=== PATIENT | female | born 1955 | race Caucasian/White ===

== ENCOUNTER 2017-01-12 08:00 | Observation (INO) | payer BC ==
[2017-01-12] MEDS ORDERED: LIDOCAINE 1% 2 ML INJ ONE (08:34)
[2017-01-12] MEDS ORDERED: LIDOCAINE 1% 2 ML INJ ID PRN (08:36)
[2017-01-12] MEDS ORDERED: LR 1,000 ML IV ONE (08:36)
[2017-01-12] MEDS ORDERED: BUPIVACAINE 0.5% 30 ML SDV ONE (09:01)
[2017-01-12] MEDS ORDERED: SCOPOLAMINE HYDROBROMIDE 1 MG/3 DAYS PATCH TD ONE (09:14)
[2017-01-12] MEDS ORDERED: MIDAZOLAM 2 MG/2 ML VIAL ONE (09:14)
[2017-01-12] MEDS ORDERED: cefOXitin SODIUM 2 GM in D5W 100 ML IV ONE (09:18)
--- NOTE | 2017-01-12 09:18 | PDHPUP ---
History & Physical Update H&P update statement: This history and physical update is based on an assessment of the patient which was completed after admission or registration (within 24 hours), but prior to the surgery/procedure. H&P update: H&P reviewed & patient examined, no change in patient's condition since H&P completed
[2017-01-12] MEDS ORDERED: fentaNYL 100 MCG/2 ML INJ ONE (09:24)
[2017-01-12] MEDS ORDERED: PROPOFOL/EMULSION 500 MG/50 ML BOTTLE IV ONE ×2 (09:24→09:31)
[2017-01-12] MEDS ORDERED: DEXMEDETOMIDINE/NS 4MCG/ML 50 ML BTL IV ONE (10:09)
[2017-01-12] MEDS ORDERED: RANITIDINE 50 MG/2 ML VIAL ONE (10:19)
[2017-01-12] MEDS ORDERED: LIDOCAINE 2% 5 ML SDV ONE (10:19)
[2017-01-12] MEDS ORDERED: epHEDrine SULFATE 10 MG/ML SYR ONE (10:19)
[2017-01-12] MEDS ORDERED: ONDANSETRON 4 MG/2 ML VIAL ONE (10:19)
[2017-01-12] MEDS ORDERED: SUGAMMADEX SODIUM 200 MG/2 ML VIAL IVP ONE (10:19)
[2017-01-12] MEDS ORDERED: ROCURONIUM 100 MG/10 ML VIAL ONE (10:19)
[2017-01-12] MEDS ORDERED: METOCLOPRAMIDE 10 MG/2 ML VIAL ONE (10:19)
[2017-01-12] MEDS ORDERED: DEXAMETHASONE 4 MG/ML VIAL ONE (10:19)
[2017-01-12] MEDS ORDERED: KETOROLAC 30 MG/1 ML SDV ONE (10:19)
--- NOTE | 2017-01-12 10:23 | PDANEPAE ---
ANE Past Medical History - Cardiovascular History Hx Hypertension: No Hx Arrhythmias: No Hx Chest Pain: No Hx Coronary Artery / Peripheral Vascular Disease: No Hx CHF / Valvular Disease: No Hx Palpitations: No - Pulmonary History Hx COPD: No Hx Asthma/Reactive Airway Disease: No Hx Recent Upper Respiratory Infection: No Hx Oxygen in Use at Home: No Hx Sleep Apnea: No Sleep Apnea Screening Result - Last Documented: Negative - Neurologic History Hx Cerebrovascular Accident: No Hx Seizures: No Hx Dementia: No - Endocrine History Hx Diabetes: No - Renal History Hx Renal Disorders: No - Liver History Hx Hepatic Disorders: No - Neurological & Psychiatric Hx Hx Neurological and Psychiatric Disorders: No - Cancer History Hx Cancer: No - Congenital Disorder History Hx Congenital Disorders: No - GI History Hx Gastrointestinal Disorders: Yes Gastrointestinal History Comment: Barretts esophagus - Other Health History Other Health History: loose tooth lower R - Chronic Pain History Chronic Pain: No - Surgical History Prior Surgeries: tubal ligation ANE Review of Systems Review of Systems: - Exercise capacity METS (RN): 5 METS ANE Patient History - Allergies Allergies/Adverse Reactions: No Known Allergies Allergy (Unverified 10/12/14 13:26) - Home Medications Home Medications: Ferrous Sulfate [Ferrous Sulf 325 MG (*)] 325 mg PO DAILY 12/24/16 [Last Taken Unknown] Lansoprazole [Prevacid] 30 mg PO DAILY 12/24/16 [Last Taken Unknown] Multivitamins [Multivitamin (*)] 1 each PO DAILY 12/24/16 [Last Taken Unknown] - NPO status NPO Since - Liquids (Date): 01/11/17 NPO Since - Liquids (Time): 22:00 NPO Since - Solids (Date): 01/11/17 - Smoking Hx Smoking Status: Never smoked - Family Anes Hx Family Hx Anesthesia Complications: none ANE Labs/Vital Signs - Vital Signs Blood Pressure: 124/85 Heart Rate: 67 Respiratory Rate: 15 O2 Sat (%): 96 Height: 162.56 cm Weight: 68.039 kg ANE Physical Exam - Airway Neck exam: FROM Mallampati Score: Class 1 Mouth exam: normal dental/mouth exam Mouth image: 1 - loose crown, missing 1 and 2 - Pulmonary Pulmonary: no respiratory distress, no rales or rhonchi, clear to auscultation - Cardiovascular Cardiovascular: regular rate and rhythym, no murmur, rub, or gallop - ASA Status ASA Status: II (loose crown, right upper teeth, last one, 6th from midline) ANE Anesthesia Plan Anesthesia Plan: general endotracheal anesthesia Total IV Anesthesia: Yes
[2017-01-12] MEDS ORDERED: MEPERIDINE 25 MG/ML SYR IVP PRN (11:09)
[2017-01-12] MEDS ORDERED: LR 500 ML IV PRN (11:09)
[2017-01-12] MEDS ORDERED: METOCLOPRAMIDE 10 MG/2 ML VIAL IVP PRN (11:09)
[2017-01-12] MEDS ORDERED: DEXAMETHASONE 4 MG/ML VIAL IVP PRN (11:09)
[2017-01-12] MEDS ORDERED: NALOXONE HCL 0.4 MG/ML INJ IVP PRN (11:09)
[2017-01-12] MEDS ORDERED: ALBUTEROL 3 ML DEYVIAL IH PRN (11:09)
[2017-01-12] MEDS ORDERED: fentaNYL 100 MCG/2 ML INJ IVP PRN (11:09)
[2017-01-12] MEDS ORDERED: ONDANSETRON 4 MG/2 ML VIAL IVP PRN ×2 (11:09→11:46)
[2017-01-12] MEDS ORDERED: PROMETHAZINE HCL 25 MG/ML INJ IVP PRN (11:09)
--- NOTE | 2017-01-12 11:45 | POSTOPPROG ---
Post Op Note Date of Operation: 01/12/17 Surgeon: Gera Rodriguez Certified Maintenance Welder: Dr. Flynn Anesthesiologist: Dr. Garcia Anesthesia: GET(General Endotracheal) Pre-op Diagnosis: PEH Post-op Diagnosis: PEH Procedure: Robotic PEHR, fundoplication Inf/Abcess present in the surg proc area at time of surgery?: No EBL: Minimal
[2017-01-12] MEDS: HYDROmorphone HCL/NS/PF 0.4 MG/2 ML SYR IVP PRN ×2 (12:51→23:29)
[2017-01-12] MEDS: LR 1,000 ML IV SCH ×2 (13:10→23:29)
[2017-01-12] MEDS: OXYCODONE/APAP 5/325 TAB PO PRN (17:12)
[2017-01-13] MEDS: OXYCODONE/APAP 5/325 TAB PO PRN ×2 (05:51→11:40)
[2017-01-13 05:55] LABS: HEMOGLOBIN 12.7 g/dL (12.6-16.3); MEAN CELL HEMOGLOBIN CONCENTR. 31.8 g/dL (32.4-36.7); MEAN CELL VOLUME 78.7 fL (81.5-99.8); RED BLOOD CELL COUNT 5.08 10^6/uL (4.18-5.33); RED CELL DISTRIBUTION WIDTH 15.3 % (11.5-15.2)
[2017-01-13 06:10] LABS: ALANINE AMINOTRANSFERASE 51 IU/L (9-52); ALBUMIN 3.2 g/dL (3.5-5.0); ALKALINE PHOSPHATASE 39 IU/L (38-126); ANION GAP 10 mEq/L (8-16); ASPARTATE AMINOTRANSFERASE 31 IU/L (14-46); BILIRUBIN,TOTAL 1.4 mg/dL (0.1-1.4); CALCIUM 8.8 mg/dL (8.5-10.4); CARBON DIOXIDE 25 mEq/l (22-31); CHLORIDE 105 mEq/L (97-110); CREATININE 0.8 mg/dL (0.6-1.0); GLOMERULAR FILTRATION RATE > 60; GLUCOSE 97 mg/dL (70-100); POTASSIUM 4.5 mEq/L (3.5-5.2); SODIUM 140 mEq/L (134-144); TOTAL PROTEIN 5.6 g/dL (6.3-8.2)
[2017-01-13 07:27] VITALS: RESP 16
--- NOTE | 2017-01-13 10:26 | ASMTCASEMG ---
Living Arrangements What is your living Answers: With Spouse arrangement? Who do you live with? Type Of Residence What kind of residence do Answers: House you live in? Discharge Plan Comments Coordination Status Comments Notes: CM spoke w/ BRITTNI Guajardo regarding d/c POC. Pt is a 61 y/o female admitted for paraesophageal hernia. Anticipates that pt will d/c independent when medically stable w/ supportive . No therapies ordered at this time. CM available for d/c needs. Plan: Independent Date Signed: 01/13/2017 10:26 AM Electronically Signed By:MARIA TERESA Chavis
[2017-01-13 10:46] VITALS: BP 104/58; PULSE 62; TEMP 98.4; O2SAT 92
--- NOTE | 2017-01-13 11:03 | SOAPPROG ---
SOAP Progress Note Assessment/Plan: Assessment: Plan: 01/13/17 11:02 S/P lap PEHR, doing well. Plan d/c, dietary/exercise advancement discussed with patient and family. Subjective: Patient with some right shoulder pain, improved. No N/V. Kurt clears without difficulty. Objective: Vital Signs Temp Pulse Resp BP Pulse Ox 36.9 C 62 16 104/58 L 92 01/13/17 10:44 01/13/17 10:44 01/13/17 10:44 01/13/17 10:44 01/13/17 10:44 Laboratory Results 01/13/17 04:50 01/13/17 04:50 01/12/17 01/13/17 01/14/17 05:59 05:59 05:59 Intake Total 1743 200 Output Total 700 250 Balance 1043 -50 Alert, NAD RRR Abd soft, NTTP Inc C/D/I ICD10 Worksheet Patient Problems: Problems Problem Status Onset Paraesophageal hernia Acute - ICD10 Problem Qualifiers (1) Paraesophageal hernia
--- NOTE | 2017-01-13 14:06 | ASDISCHSUM ---
Discharge Information Plan Status:Home with No Needs Medically Cleared to Leave:01/12/2017 Discharge Date:01/13/2017 12:30 PM D/C Disposition: ADT D/C Disposition:Home, Routine, Self-Care Projected Discharge Date:01/13/2017 12:00 AM Transportation at D/C: Discharge Delay Reason: Follow-Up Date:01/13/2017 12:00 AM Discharge Slot: Final Diagnosis: Placement Information Patient Contact Information Contact Name:LORENZO Relationship: Address:[address] [address] Work Phone: [facility]:[place] Alternate Phone: [facility]/Zip Code:[place] [address] Email: Financial Information Financial Class:HMO and PPO Plans Primary Plan Desc: OUT OF STATE PPO Primary Plan Number:[id number] Secondary Plan Desc: Secondary Plan Number: Assessment Information [facility] Initial CM Assessment Living Arrangements What is your living Answers: With Spouse arrangement? Who do you live with? Type Of Residence What kind of residence do Answers: House you live in? Discharge Plan Comments Coordination Status Comments Notes: CM spoke w/ BRITTNI Guajardo regarding d/c POC. Pt is a 61 y/o female admitted for paraesophageal hernia. Anticipates that pt will d/c independent when medically stable w/ supportive . No therapies ordered at this time. CM available for d/c needs. Plan: Independent Date Signed: 01/13/2017 10:26 AM Electronically Signed By:MARIA TERESA Chavis Intervention Information Intervention Type:*Incorrect Registration Date of Service:01/12/2017 04:16 PM Patient Type:Inpatient Staff Member:BRITTNI Bosch, Erika Hours: Discipline: Severity: Comment:
--- NOTE | 2017-01-13 16:40 | GOP ---
[f rep st] OPERATIVE REPORT DATE OF OPERATION: 01/12/2017 SURGEON: Tyree Rodriguez MD PROCESS CONSULTANT: Kamaljit Flynn MD, whose presence was requested by me and medically necessary for the sa fe and timely completion of the case. ANESTHESIA: General endotracheal anesthesia. ANESTHESIOLOGIST: Jewels Garcia MD PREOPERATIVE DIAGNOSIS: 1. Paraesophageal hernia. 2. Gastroesophageal reflux disease. POSTOPERATIVE DIAGNOSIS: 1. Paraesophageal hernia. 2. Gastroesophageal reflux disease. PROCEDURE PERFORMED: Robotic paraesophageal hernia repair with toupee fundoplication. FINDINGS: The patient had a large paraesophageal hernia. Stomach and esophagus appeared viable. ESTIMATED BLOOD LOSS: 20 cc. INDICATIONS: A 61-year-old female with a history of intermittent abdominal and chest pain. CT scan a nd EGD both demonstrated a large paraesophageal hernia. Risks and benefits of the procedure were disc ussed with the patient and her family, their questions were answered and they wished to proceed. DESCRIPTION OF PROCEDURE: The patient was in the supine position initially. After the induction of a dequate general endotracheal anesthesia, the patient was moved to the modified lithotomy position. Th e patient was then prepped and draped in the standard surgical fashion. Marcaine 0.5% was injected th roughout the supraumbilical area for local anesthesia. An 8-mm incision was made and the abdominal wall was elevated. A Veress needle was inserted and after noting proper pressures, the abdomen was insufflated with carbon dioxide. An 8-mm trocar was placed and a camera followed. There was no apparent damage from trocar placement. Four more ports were place d, three 8-mm ports in the upper abdomen and one 5-mm port in the right mid abdomen. These were all p laced under direct vision after injecting 0.5% Marcaine for local anesthesia. The robot was then docked without difficulty. Robotic instruments were then used to perform the disse ction. The Harmonic scalpel was used to take down the gastrohepatic ligament. Dissection was then car ried over the esophagus exposing the right robbie. The dissection proceeded laterally and the superior portion of the esophagus and the left robbie were exposed. The vagus nerves were seen and preserved thr oughout the entire case. Next, the posterior window was opened using blunt dissection and the Harmoni c scalpel. Once this window was achieved, attention was turned to the short gastrics. A significant portion of the short gastric vessels was taken down using a Harmonic scalpel. This free d up the fundus in its entirety. The mediastinal dissection was then performed. This was carefully pe rformed using blunt dissection and minimal energy component. Once the entire visible portion of the e sophagus was freed and the gastroesophageal junction returned to the abdomen, the repair of the hiata l hernia ensued. Interrupted sutures of 3-0 silk were used to approximate the hiatus posteriorly. Sabine ugh room was seen for the esophagus and an instrument tip. The fundus was then brought posteriorly to the esophagus and the wrap performed. Initial suture took bites of stomach, anterior esophagus, and stomach. Care was taken again to avoid the vagus nerve. Two more sutures of 3-0 silk were used to cre ate the wrap inferiorly. This was a loose floppy wrap. No other lesions were identified at this time. Good hemostasis was noted. The robot was then undocked. Trocars were removed under direct vision. The pneumoperitoneum was allow ed to escape. The wounds were thoroughly irrigated. The skin at all sites was closed using 4-0 Monocr yl in a subcuticular suture. Wounds were sterilely dressed and the patient was returned to the supine position and extubated. The patient was then taken to the PACU in stable condition. COMPLICATIONS: None. DRAINS: None. ADDENDUM: The large paraesophageal hernia was reduced without difficulty. No lesions of the esophagu s were identified. The tissue appeared very viable. A posterior wrap, 270 degrees, was created by sarah frias anchoring the fundus to the diaphragm. Next, sutures were used to create the wrap anteriorly. /[id number]/MODL
== END 2017-01-13 12:30 | disposition home or self-care (01) ==
LOC: INTOOBSV 08:00 → F3E 08:00
PROVIDERS: ADMIT Surgery; ATTEND Surgery
PROC: 0DV44ZZ Restriction of Esophagogastric Junction, Percutaneous Endoscopic Approach (ICD-10-PCS; principal; 2017-01-12 09:30)
DX: K44.9 Diaphragmatic hernia without obstruction or gangrene (principal); K21.9 Gastro-esophageal reflux disease without esophagitis
CPT/HCPCS: 43281; G0378; J0694; J1100; J1170; J1885; J2250; J2405; J2704; J2765; J2780; J3010

== ENCOUNTER → 2017-02-13 | Outpatient (CLI) | payer BC | LOC: FIMAGING 10:51 | PROVIDERS: ATTEND Obstetrics & Gynecology | DX: D25.9 Leiomyoma of uterus, unspecified (principal); R93.8 Abnormal findings on diagnostic imaging of other specified body structures ==

== ENCOUNTER → 2017-06-11 | Outpatient (CLI) | payer BC ==
[~2017-06-11] MED LIST: ONDANSETRON DISINTEGRATING 4 MG TAB ONE
== END ==
LOC: FIMAGING 08:44
PROVIDERS: ATTEND Surgery
DX: K44.9 Diaphragmatic hernia without obstruction or gangrene (principal); Q39.8 Other congenital malformations of esophagus

== ENCOUNTER 2017-06-22 09:02 | Inpatient (IN) | payer BC ==
[2017-06-22] MEDS ORDERED: BUPIVACAINE 0.5% 30 ML SDV ONE (09:12)
[2017-06-22] MEDS ORDERED: LR 1,000 ML IV ONE (09:14)
[2017-06-22] MEDS ORDERED: LIDOCAINE 1% 2 ML INJ ID PRN (09:14)
--- NOTE | 2017-06-22 09:29 | PDANEPAE ---
ANE History of Present Illness 62 year old female for Olvin Fundiplication. Patient has a history of previous olvin, GERD/Santamaria's esophagus & PONV. ANE Past Medical History - Cardiovascular History Hx Hypertension: No Hx Arrhythmias: No Hx Chest Pain: No Hx Coronary Artery / Peripheral Vascular Disease: No Hx CHF / Valvular Disease: No Hx Palpitations: No - Pulmonary History Hx COPD: No Hx Asthma/Reactive Airway Disease: No Hx Recent Upper Respiratory Infection: No Hx Oxygen in Use at Home: No Hx Sleep Apnea: No Sleep Apnea Screening Result - Last Documented: Negative - Neurologic History Hx Cerebrovascular Accident: No Hx Seizures: No Hx Dementia: No - Endocrine History Hx Diabetes: No Endocrine History Comment: Overweight per BMI. - Renal History Hx Renal Disorders: No - Liver History Hx Hepatic Disorders: No - Neurological & Psychiatric Hx Hx Neurological and Psychiatric Disorders: No - Cancer History Hx Cancer: No - Congenital Disorder History Hx Congenital Disorders: No - GI History Hx Gastrointestinal Disorders: Yes Gastrointestinal History Comment: PREV FUNDOPLICATION HAS REVERSED ITSELF CURRENTLY ONLY ABLE TO TOLERATE LIQUIDS. Barretts esophagus - Other Health History Other Health History: loose tooth lower R - Chronic Pain History Chronic Pain: No - Surgical History Prior Surgeries: FUNDOPLICATION 12/2016. tubal ligation ANE Review of Systems Review of systems is: negative Review of Systems: - Exercise capacity Exercise capacity: >=4 METS METS (RN): 4 METS ANE Patient History - Allergies Allergies/Adverse Reactions: No Known Allergies Allergy (Unverified 10/12/14 13:26) - Home Medications Home medications: home medication list seen and reviewed Home Medications: Ferrous Sulfate [Ferrous Sulf 325 MG (*)] 325 mg PO DAILY 12/24/16 [Last Taken 04/23/17] Multivitamins [Multivitamin (*)] 1 each PO DAILY 12/24/16 [Last Taken 04/23/17] Famotidine [Pepcid] 06/22/17 [Last Taken 06/22/17 06:30] Zofran Odt 4 mg (*) 4 mg SL PRN PRN 06/22/17 [Last Taken 06/21/17] - NPO status NPO Status: no food or drink >8 hours - Anes Hx Anes Hx: no prior problems - Smoking Hx Smoking Status: Never smoked Marijuana use: No - Alcohol Use Alcohol Use: Rarely - Family Anes Hx Family Anes Hx: neg - N/A Family Hx Anesthesia Complications: none ANE Labs/Vital Signs - Vital Signs Vital Signs: reviewed preoperatively; see RN documention for details Height: 162.56 cm Weight: 72.121 kg ANE Physical Exam - Airway Neck exam: FROM Mallampati Score: Class 2 Mouth exam: normal dental/mouth exam Mouth image: 1 - implant that is loose - Pulmonary Pulmonary: no respiratory distress - Cardiovascular Cardiovascular: regular rate and rhythym - ASA Status ASA Status: II ANE Anesthesia Plan Anesthesia Plan: general endotracheal anesthesia Total IV Anesthesia: No
[2017-06-22] MEDS ORDERED: cefOXitin SODIUM 2 GM in STERILE WATER INJ 21 ML IV ONE (10:38)
--- NOTE | 2017-06-22 10:42 | PDGENHP ---
History & Physical Chief Complaint: GERD, h/o Santamaria's History of Present Illness: Underwent prior fundoplication with improvement; however symptoms recurred and imaging demonstrates recurrent HH. PMHx as above. PSHx as above, tubal ligation Pertinent Past, Social, Family History: Non smoker. NKDA Relevant Physical Exam: Abd soft, NTTP. Inc well-healed Cardiorespiratory Assessment: CTA B. RRR. Risks/benefits reviewed with pt and family. Questions answered. Proceed with robotic repair of recurrent HH.
[2017-06-22] MEDS ORDERED: MIDAZOLAM 2 MG/2 ML VIAL IVP ONE (10:48)
[2017-06-22] MEDS ORDERED: SCOPOLAMINE HYDROBROMIDE 1 MG/3 DAYS PATCH TD ONE (10:54)
[2017-06-22] MEDS ORDERED: PROPOFOL 200 MG/20 ML VIAL ONE (11:03)
[2017-06-22] MEDS ORDERED: MIDAZOLAM 2 MG/2 ML VIAL ONE (11:03)
[2017-06-22] MEDS ORDERED: fentaNYL 100 MCG/2 ML INJ ONE ×2 (11:03→12:15)
[2017-06-22] MEDS ORDERED: DEXAMETHASONE 4 MG/ML VIAL ONE (11:10)
[2017-06-22] MEDS ORDERED: LIDOCAINE 2% 5 ML SDV ONE (11:10)
[2017-06-22] MEDS ORDERED: ONDANSETRON 4 MG/2 ML VIAL ONE (11:10)
[2017-06-22] MEDS ORDERED: ROCURONIUM 50 MG/5 ML VIAL ONE ×2 (11:10→12:12)
[2017-06-22] MEDS ORDERED: PROPOFOL/EMULSION 500 MG/50 ML BOTTLE IV ONE ×2 (11:12→13:02)
[2017-06-22] MEDS ORDERED: epHEDrine SULFATE 10 MG/ML SYR ONE (11:34)
[2017-06-22] MEDS ORDERED: PHENYLEPHRINE HCL 100 MCG/ML SYR ONE (11:34)
[2017-06-22] MEDS ORDERED: HYDROmorphONE/DILAUDID 2 MG/ML INJ ONE (12:40)
[2017-06-22] MEDS ORDERED: SUGAMMADEX SODIUM 200 MG/2 ML VIAL IVP ONE (13:33)
[2017-06-22] MEDS ORDERED: HYDROmorphONE/DILAUDID 2 MG/ML INJ IVP PRN (13:36)
[2017-06-22] MEDS ORDERED: PHENYLEPHRINE HCL 100 MCG/ML SYR IVP PRN (13:36)
[2017-06-22] MEDS ORDERED: PROMETHAZINE HCL 25 MG/ML INJ IVP PRN (13:36)
[2017-06-22] MEDS ORDERED: fentaNYL 100 MCG/2 ML INJ IVP PRN (13:36)
[2017-06-22] MEDS ORDERED: DEXAMETHASONE 4 MG/ML VIAL IVP PRN (13:36)
[2017-06-22] MEDS ORDERED: epHEDrine SULFATE 10 MG/ML SYR IVP PRN (13:36)
[2017-06-22] MEDS ORDERED: LR 500 ML IV PRN (13:36)
[2017-06-22] MEDS ORDERED: NALOXONE HCL 0.4 MG/ML INJ IVP PRN (13:36)
[2017-06-22] MEDS ORDERED: OXYCODONE/APAP 5/325 TAB PO PRN (14:16)
--- NOTE | 2017-06-22 14:16 | POSTOPPROG ---
Post Op Note Date of Operation: 06/22/17 Surgeon: Gera Rodriguez Blasting Machine Operator: Dr. Flynn Anesthesiologist: Dr. Martinez Anesthesia: GET(General Endotracheal) Pre-op Diagnosis: Recurrent HH Post-op Diagnosis: same Procedure: Robotic HH repair Inf/Abcess present in the surg proc area at time of surgery?: No EBL: Minimal
[2017-06-22] MEDS ORDERED: HYDROmorphONE/DILAUDID 1 MG/ML INJ IVP PRN (14:17)
[2017-06-22] MEDS ORDERED: HYDROmorphone HCL 0.5 MG/0.5 ML SYR IVP PRN (14:20)
[2017-06-22] MEDS ORDERED: CARBOXYMETHYLCELLULOSE 1% 0.4 ML DROPERETTE EACHEYE PRN (16:43)
[2017-06-22] MEDS: TETRACAINE 0.5% 15 ML OPHT.BTL RTEYE PRN ×3 (17:02→22:27)
[2017-06-22] MEDS ORDERED: PROMETHAZINE HCL 25 MG/ML INJ ONE (18:01)
--- NOTE | 2017-06-22 18:09 | POSTANESTH ---
Post Anesthetic Evaluation Cardiovascular Status: Normal, Stable, Similar to Pre-Op Cond Respiratory Status: Normal, Stable, Similar to Pre-op Cond. Level of Consciousness/Mental Status: Can Participate in Eval, Alert and Oriented Pain Control: Adequate, Prn Tx Ordered Nausea/Vomiting Control: Adequate, Prn Tx Ordered Complications Possibly Related to Anesthesia: None Noted (Patient did scratch her own eye in PACU and gave herself a corneal abrasion. Artificial tears and local anesthetic drops ordered for patient.), Other, See Comments
[2017-06-22] MEDS: ONDANSETRON 4 MG/2 ML VIAL IVP PRN (22:27)
[2017-06-22] MEDS: SCOPOLAMINE HYDROBROMIDE 1 MG/3 DAYS PATCH TD SCH (23:32)
[2017-06-23] MEDS: HYDROmorphone HCL/NS 0.5 MG/ML SYR IVP PRN ×2 (00:55→08:02)
[2017-06-23] MEDS: SCOPOLAMINE HYDROBROMIDE 1 MG/3 DAYS PATCH TD SCH (01:24)
[2017-06-23] MEDS: ONDANSETRON 4 MG/2 ML VIAL IVP PRN ×3 (02:27→15:05)
[2017-06-23] MEDS ORDERED: PROMETHAZINE HCL 25 MG/ML INJ ONE (03:54)
[2017-06-23] MEDS ORDERED: PROMETHAZINE HCL 25 MG/ML INJ IV PRN (04:09)
[2017-06-23] MEDS: LR 1,000 ML IV SCH ×2 (04:53→15:05)
[2017-06-23] MEDS ORDERED: LORazepam 2 MG/ML INJ IVP PRN (09:13)
[2017-06-23] MEDS ORDERED: PROMETHAZINE HCL 25 MG/ML INJ IVP PRN (09:13)
--- NOTE | 2017-06-23 09:16 | SOAPPROG ---
SOAP Progress Note Assessment/Plan: Assessment: s/p recurrent HH repair, persistent nausea. Change meds, cont obs. If no improvement plan imaging. D/w patient and family, questions answered. Plan: 06/23/17 09:14 Subjective: Patient with persistent nausea, some regurgitation of clear fluid. Pain controlled. Objective: Vital Signs Temp Pulse Resp BP Pulse Ox 37.2 C 75 22 H 136/86 H 98 06/23/17 09:06 06/23/17 09:06 06/23/17 09:06 06/23/17 09:06 06/23/17 09:06 06/22/17 06/23/17 06/24/17 05:59 05:59 05:59 Intake Total 1210 Output Total 175 Balance 1035 Alert, appears uncomfortable RRR CTA B Abd soft, inc TTP Inc C/D/I ICD10 Worksheet Patient Problems: Problems Problem Status Onset Paraesophageal hernia Acute
--- NOTE | 2017-06-23 11:10 | GOP ---
[f rep st] OPERATIVE REPORT DATE OF OPERATION: 06/22/2017 SURGEON: Tyree Rodriguez MD SOD CUTTER: Kamaljit Flynn MD, whose presence was requested by me and medically necessary for the safe and timely completion of the case. ANESTHESIA: General endotracheal anesthesia. ANESTHESIOLOGIST: Dr. Martinez. PREOPERATIVE DIAGNOSIS: Recurrent hiatal hernia, with gastroesophageal reflux disease and history of Santamaria's. POSTOPERATIVE DIAGNOSIS: Recurrent hiatal hernia, with gastroesophageal reflux disease and history of Santamaria's. PROCEDURE PERFORMED: Robotic revision of hiatal hernia repair, and fundoplication. FINDINGS: The patient had a moderate anterior hiatal hernia with a significant amount of stomach herniating through it. The wrap appeared intact and no other lesions were identified. ESTIMATED BLOOD LOSS: 20 cc. INDICATIONS: This is a 62-year-old female with a history of reflux. Patient had prior hiatal hernia repair and fundoplication. Imaging demonstrated intact fundoplication, but recurrent hiatal hernia. Risks and benefits of the procedure were discussed with the patient and her family, their questions were answered, they wished to proceed. DESCRIPTION OF PROCEDURE: Patient in supine position. After induction of adequate general endotracheal anesthesia, the patient was prepped and draped in standard surgical fashion. 0.5% Marcaine was injected throughout the supraumbilical area, using the old incision site. This was opened using a #15 blade, and the abdominal wall was elevated. A Veress needle was inserted, and after noting proper pressures, the abdomen was insufflated with carbon dioxide. An 8 mm trocar was passed. The camera followed. There was no apparent damage from trocar placement. Four more 8 mm trocars were placed in the upper abdomen, using the old incision site. This was done after injecting 0.5% Marcaine for local anesthesia. The robot was docked and the liver elevated using the dual blade liver retractor. Minimal amount of scar tissue was identified. This was easily taken down using blunt dissection and the Harmonic Scalpel. The hiatus was examined and found to have a large anterior hiatal hernia. This was reduced easily. The posterior segment was identified, and the sutures were still intact in this area. The wrap was also identified, and the sutures were intact here as well. Significant amounts of scar tissue were identified in the mediastinum, with a hernia sac as well. The hernia sac was partially excised. The esophagus was lengthened by dissecting through the scar tissue in the mediastinum. This allowed the stomach to lay in the abdomen without tension. Following this, decision was made to close the crura primarily. Initially, further sutures posteriorly were added. This was done using 2-0 silk in interrupted and [id number] fashion. The tissue was in good condition and held the sutures well. Next, attention was turned to the anterior aspect, and interrupted sutures of 2-0 silk were placed here as well. This allowed for a good crural closure with enough room for the esophagus and instrument tip. The area was carefully inspected. No other lesions were identified. The wrap was intact, and this was then secured to the crura using sutures of 2-0 silk in interrupted fashion. The area was thoroughly irrigated and aspirated. Good hemostasis was noted throughout. The instruments were withdrawn. The robot was undocked. Trocars were withdrawn and pneumoperitoneum was allowed to escape. The wounds were thoroughly irrigated. The skin at all sites was closed with 4-0 Monocryl in a subcuticular stitch. Wounds were sterilely dressed. The patient was extubated and taken to the PACU in stable condition. COMPLICATIONS: None. DRAINS: None. /[id number]/MODL MTDD
--- NOTE | 2017-06-23 11:36 | ASMTCASEMG ---
Living Arrangements What is your living Answers: With Spouse arrangement? Who do you live with? Type Of Residence What kind of residence do Answers: House you live in? Discharge Plan Comments Coordination Status Comments Notes: Patient is a 62yo female who was admitted for surgical repair of paraesophogeal hernia. No therapies have been ordered at this time. Patient will likely d/c home independently. D/C plan TBD. CM will follow. Date Signed: 06/23/2017 11:36 AM Electronically Signed By:Heydi Coates LCSW
--- NOTE | 2017-06-23 14:50 | PDMN ---
Medical Necessity Medical necessity: Patient meets inpatient criteria per physician note and MCG S -505 Fundoplasty, Esophagogastric, by Laparoscopy (extended stay required for persistent postop nausea; LOS will be > 2 midnights for ongoing IV hydration and IV antiemetics.)
[2017-06-23] MEDS: KETOROLAC 15 MG/1 ML SDV IVP SCH ×2 (17:46→22:53)
[2017-06-24] MEDS: LR 1,000 ML IV SCH (03:20)
[2017-06-24] MEDS: TETRACAINE 0.5% 15 ML OPHT.BTL RTEYE PRN ×3 (03:21→14:32)
[2017-06-24] MEDS: KETOROLAC 15 MG/1 ML SDV IVP SCH ×2 (05:48→12:22)
[2017-06-24 08:54] VITALS: BP 107/72
--- NOTE | 2017-06-24 09:04 | SOAPPROG ---
SOAP Progress Note Assessment/Plan: Assessment: s/p recurrent HH repair, markedly improved. Cont clears, consider d/c when tolerating. D/w patient and family, questions answered. Plan: 06/23/17 09:14 06/24/17 09:02 Subjective: Patient feels better, no nausea. Sipping clears, ambulating, voiding. Minimal pain. Objective: Vital Signs Temp Pulse Resp BP Pulse Ox 37.1 C 72 12 107/72 91 L 06/24/17 08:53 06/24/17 08:53 06/24/17 08:53 06/24/17 08:53 06/24/17 08:53 Laboratory Results 06/24/17 05:48 06/24/17 05:48 06/23/17 06/24/17 06/25/17 05:59 05:59 05:59 Intake Total 1210 1360 Output Total 175 Balance 1035 1360 Alert, NAD Abd soft, NTTP ICD10 Worksheet Patient Problems: Problems Problem Status Onset Paraesophageal hernia Acute
[2017-06-25] MEDS ORDERED: PATCH REMOVAL 1 EA PATCH TD SCH (10:48)
== END 2017-06-24 14:40 | disposition home or self-care (01) | DRG 328 ==
LOC: OBSVTOIN 09:02 → F3E 09:02
PROVIDERS: ADMIT Surgery; ATTEND Surgery
DX: K44.9 Diaphragmatic hernia without obstruction or gangrene (principal); R11.0 Nausea; K21.9 Gastro-esophageal reflux disease without esophagitis; Z87.19 Personal history of other diseases of the digestive system
CPT/HCPCS: G0378; J0694; J1100; J1170; J1885; J2060; J2250; J2370; J2405; J2550; J2704; J3010